=== PATIENT | male | born 1960 | race Caucasian/White ===

== ENCOUNTER 2023-02-18 09:55 | Emergency (ER) | payer OTHER, SELFPAY ==
[2023-02-18 10:01] VITALS: BP 122/74; PULSE 90; RESP 20; TEMP 36.8; O2SAT 95; BMI 38.9
--- NOTE | 2023-02-18 10:19 | CT_ITS ---
[address] [address] Patient Name: GELY JASMINE MRN: [id number] date: 1960 Sex: M Assigned Patient Location: ED.MAIN Current Patient Location: Accession/Order Number: [id number] Exam Date: 02/18/2023 10:30 Report Date: 02/18/2023 11:32 At the request of: TORITO CHAIDEZ Procedure: CT abdomen pelvis wo con EXAMINATION: CT abdomen pelvis wo con HISTORY: flank pain and urinary symptoms COMPARISON: No relevant comparison available. TECHNIQUE: Axial, Coronal, and Sagittal images were obtained without and/or with IV contrast as indicated by examination type. Dose reduction techniques were achieved by using automated exposure control and/or adjustment of mA and/or kV according to patient size and/or use of iterative reconstruction technique. FINDINGS: LUNG BASES: No visible pulmonary or pleural disease. LIVER: No enlargement, atrophy, suspicious density, or significant focal lesion. BILIARY: Cholecystectomy. PANCREAS: No lesion, fluid collection, or abnormal duct dilatation. SPLEEN: No enlargement or focal lesion. ADRENALS: No mass or enlargement. KIDNEYS: Small bilateral renal cysts. No mass, obstruction, or calcification. BOWEL/MESENTERY: No visible mass, obstruction, or bowel wall thickening. Normal appendix. AORTA/VASCULAR: No aneurysm or dissection. RETROPERITONEUM: No mass or adenopathy. LYMPH NODES: No adenopathy. URINARY BLADDER: Irregular wall thickening of the urinary bladder. No stones. PELVIC ORGANS: No visible mass. Pelvic organs appropriate for patient age. ABDOMINAL WALL: Absent versus complete fatty replacement of the right rectus abdominis muscle. No mass or hernia. BONES: Multilevel degenerative disc disease and degenerative facet arthropathy of the lumbar spine. No bony lesion or fracture. OTHER: Negative. IMPRESSION: 1.The urinary bladder is only minimally distended, but there appears to be abnormal circumferential wall thickening. Cystitis? 2.No urinary tract calculi or obstructive uropathy. Electronically authenticated by: DAVID JURADO Date: 02/18/2023 11:32
[2023-02-18 10:28] LABS: Bilirubin Urine NEGATIVE (NEGATIVE); Blood Urine MODERATE (NEGATIVE); Clarity Urine CLEAR (CLEAR); Color Urine LT. YELLOW (YELLOW); Glucose Urine UA NEGATIVE (NEGATIVE); Ketones Urine NEGATIVE (NEGATIVE); Leukocyte Esterase Urine LARGE (NEGATIVE); Nitrite Urine POSITIVE (NEGATIVE); Protein Urine 30 mg/dL (NEG/TRACE)
[2023-02-18 10:31] LABS: Urine Microscopic Indicated YES
[2023-02-18] MEDS: 0.9 % SODIUM CHLORIDE 1,000 ML 999 ML IV (10:35)
[2023-02-18] MEDS: KETOROLAC TROMETHAMINE 30 MG/ML VIAL 15 MG IVP (10:37)
[2023-02-18 10:40] LABS: Basophils Percent Auto 0.2 % (0.2-2.0); Hematocrit 41.3 % (42.0-54.0); Immature Granulocytes Abs Auto 0.17 10^3/uL (0.00-0.03); Immature Granulocytes Pct Auto 0.8 % (0.0-0.5); Mean Corpuscular HGB Conc 33.9 g/dL (29.9-35.2); Mean Corpuscular Hemoglobin 28.1 pg (25.9-34.0); Mean Corpuscular Volume 82.8 fL (80.0-94.0); Mean Platelet Volume 9.8 fL (9.5-13.5); Monocytes Absolute Auto 1.2 10^3/uL (0.3-0.8); Neutrophils Absolute Auto 17.8 10^3/uL (1.4-6.5); Platelet Count 255 10^3/uL (150-450); Red Blood Count 4.99 10^6/uL (4.70-6.10); Red Cell Distribution Width 13.5 % (11.0-15.0); White Blood Count 20.2 10^3/uL (4.0-11.0)
--- NOTE | 2023-02-18 10:42 | ED.GENADUL1 ---
HPI - General Adult General Chief complaint: Back Pain/Injury Stated complaint: BACK PAIN Time Seen by Provider: 02/18/23 10:19 Source: patient Mode of arrival: walk-in Limitations: no limitations History of Present Illness HPI narrative: developed right flank pain 2 days ago. Also has urinary symptoms. In 2005 he had removal of about 1/3 of the right kidney due to cancer. No need for chemo or radiation. He then had more of the kidney shaved off in 2011. He has been cancer free since. He has prior history of UTI, kidney stones and kidney infections . No fever or chills. No vomiting Related Data Home Medications Medication Instructions Recorded Confirmed amlodipine 5 mg tablet 5 mg PO DAILY 02/18/23 02/18/23 aspirin 81 mg tablet,delayed 81 mg PO DAILY 02/18/23 02/18/23 release (Adult Low Dose Aspirin) atorvastatin 20 mg tablet 20 mg PO DAILY 02/18/23 02/18/23 cyclobenzaprine 10 mg tablet 10 mg PO BEDTIME PRN muscle spasm 02/18/23 02/18/23 lisinopril 20 1 tab PO DAILY 02/18/23 02/18/23 mg-hydrochlorothiazide 25 mg tablet metformin 500 mg tablet 500 mg PO BID 02/18/23 02/18/23 ropinirole 1 mg tablet 2 mg PO BEDTIME 02/18/23 02/18/23 semaglutide 2 mg/dose (8 mg/3 mL) 2 mg subcut .once a week 02/18/23 02/18/23 subcutaneous pen injector (Ozempic) tamsulosin 0.4 mg capsule 0.4 mg PO DAILY 02/18/23 02/18/23 tramadol 50 mg tablet 100 mg PO BID PRN pain 02/18/23 02/18/23 Previous Rx's Medication Instructions Recorded ciprofloxacin HCl 500 mg tablet 500 mg PO BID #14 tabs 02/18/23 (Cipro) Allergies Allergy/AdvReac Type Severity Reaction Status Date / Time No Known Drug Allergies Allergy Verified 02/18/23 10:00 [facility] Social History Smoking status: Never smoker Exam Narrative Exam Narrative: Nurses notes and vital signs reviewed and patient is not hypoxic. afebrile General: Well-appearing and in no apparent distress. Skin: Warm, dry, no pallor noted. No rash. Head: Normocephalic, atraumatic. Eye: Pupils are equal, round and EOMI. No scleral icterus. Cardiovascular: Regular Rate and Rhythm without murmur, gallop or rub. Respiratory: No accessory muscle use or respiratory distress. Lungs are clear to auscultation, no wheezing, rales or rhonchi Back: No midline thoracic or lumbar vertebral tenderness. Right CVA tenderness Musculoskeletal: normal ROM, no calf or popliteal tenderness, no lower extremity edema/swelling GI: Abdomen is soft, non-distended. Normal bowel sounds. No masses appreciated. No tenderness to palpation. No rebound, guarding, or rigidity noted. Neurological: A&O x4. No cranial nerve dysfunction observed. No truncal ataxia. Moves all extremities. Sensation intact. Psychiatric: Cooperative and interactive. Normal mood and affect. Constitutional Vital Signs - 24 hr 02/18/23 10:01 Temperature 98.3 F Pulse Rate [Monitor] 90 Respiratory Rate 20 Blood Pressure [Right Arm] 122/74 H Pulse Oximetry 95 Course Vital Signs Vital signs: Vital Signs Temperature 98.3 F 02/18/23 10:01 Pulse Rate 90 02/18/23 10:01 Respiratory Rate 20 02/18/23 10:01 Blood Pressure 122/74 H 02/18/23 10:01 Pulse Oximetry 95 02/18/23 10:01 Temperature 98.3 F 02/18/23 10:01 Pulse Rate 90 02/18/23 10:01 Respiratory Rate 20 02/18/23 10:01 Blood Pressure 122/74 H 02/18/23 10:01 Pulse Oximetry 95 02/18/23 10:01 Medical Decision Making MDM Narrative Medical decision making narrative: ct and UA consistent with UTI/cystitis. Labs reviewed. Patient informed of results and discharged home with prescription for Cipro and pyridium. PCP follow up recommended. ED return if he worsens. Lab Data Lab results reviewed: Yes I reviewed the patient's lab results Labs: Lab Results 02/18/23 02/18/23 02/18/23 Range/Units 10:15 10:30 10:31 WBC 20.2 H (4.0-11.0) 10^3/uL RBC 4.99 (4.70-6.10) 10^6/uL Hgb 14.0 (14.0-18.0) g/dL Hct 41.3 L (42.0-54.0) % MCV 82.8 (80.0-94.0) fL MCH 28.1 (25.9-34.0) pg MCHC 33.9 (29.9-35.2) g/dL RDW 13.5 (11.0-15.0) % Plt Count 255 (150-450) 10^3/uL MPV 9.8 (9.5-13.5) fL Neut % (Auto) 88.0 H (43.0-75.0) % Lymph % (Auto) 5.0 L (20.5-60.0) % Dent % (Auto) 6.0 (1.7-12.0) % Eos % (Auto) 0.0 L (0.9-7.0) % Baso % (Auto) 0.2 (0.2-2.0) % Neut # (Auto) 17.8 H (1.4-6.5) 10^3/uL Lymph # (Auto) 1.0 L (1.2-3.8) 10^3/uL Dent # (Auto) 1.2 H (0.3-0.8) 10^3/uL Eos # (Auto) 0.0 (0.0-0.7) 10^3/uL Baso # (Auto) 0.0 (0.0-0.1) 10^3/uL Abs Immat Gran (auto) 0.17 H (0.00-0.03) 10^3/uL Imm/Tot Granulo (auto) 0.8 H (0.0-0.5) % Sodium 133 L (136-145) mmol/L Potassium 3.7 (3.5-5.1) mmol/L Chloride 96 L (98-107) mmol/L Carbon Dioxide 28.3 (21.0-32.0) mmol/L Anion Gap 12.4 BUN 16.0 (7.0-18.0) mg/dL Creatinine 1.15 (0.70-1.30) mg/dL Est GFR ( Amer) >60 (>=60) Est GFR (Non-Af Amer) >60 (>=60) BUN/Creatinine Ratio 13.9 Glucose 129 H (74-106) mg/dL Calcium 8.6 (8.5-10.1) mg/dL Total Bilirubin 1.4 H (0.2-1.0) mg/dL AST 10 L (15-37) U/L ALT 21 (16-63) U/L Alkaline Phosphatase 84 (46-116) U/L Total Protein 7.6 (6.4-8.2) g/dL Albumin 3.4 (3.4-5.0) g/dL Globulin 4.2 g/dL Albumin/Globulin Ratio 0.8 Urine Color Lt. yellow (YELLOW) Urine Clarity Clear (CLEAR) Urine pH 6.0 (5.0-9.0) Ur Specific [place] 1.010 (1.005-1.025) Urine Protein 30 A (NEG/TRACE) mg/dL Urine Glucose (UA) Negative (NEGATIVE) mg/dL Urine Ketones Negative (NEGATIVE) mg/dL Urine Occult Blood Moderate A (NEGATIVE) Urine Nitrite Positive A (NEGATIVE) Urine Bilirubin Negative (NEGATIVE) Urine Urobilinogen 1.0 (0.2-1.0) EU/dL Ur Leukocyte Esterase Large A (NEGATIVE) Urine RBC 5-10 A (0-2) #/HPF Urine WBC 75-100 A (NONE SEEN) #/HPF Ur Squamous Epith Cells Few A (NONE/RARE) #/LPF Urine Crystals None seen (None Seen) #/HPF Urine Bacteria Moderate A (NONE SEEN) #/HPF Urine Casts None seen (NONE SEEN) #/LPF Urine Mucus None seen (NONE SEEN) Ur Culture Indicated? Yes Imaging Data ct abd/pelvis: Radiologist's impression: Patient Name: GELY JASMINE MRN: [id number] date: 1960 Sex: M Assigned Patient Location: ED.MAIN Current Patient Location: Accession/Order Number: [id number] Exam Date: 02/18/2023 10:30 Report Date: 02/18/2023 11:32 At the request of: TORITO CHAIDEZ Procedure: CT abdomen pelvis wo con EXAMINATION: CT abdomen pelvis wo con HISTORY: flank pain and urinary symptoms COMPARISON: No relevant comparison available. TECHNIQUE: Axial, Coronal, and Sagittal images were obtained without and/or with IV contrast as indicated by examination type. Dose reduction techniques were achieved by using automated exposure control and/or adjustment of mA and/or kV according to patient size and/or use of iterative reconstruction technique. FINDINGS: LUNG BASES: No visible pulmonary or pleural disease. LIVER: No enlargement, atrophy, suspicious density, or significant focal lesion. BILIARY: Cholecystectomy. PANCREAS: No lesion, fluid collection, or abnormal duct dilatation. SPLEEN: No enlargement or focal lesion. ADRENALS: No mass or enlargement. KIDNEYS: Small bilateral renal cysts. No mass, obstruction, or calcification. BOWEL/MESENTERY: No visible mass, obstruction, or bowel wall thickening. Normal appendix. AORTA/VASCULAR: No aneurysm or dissection. RETROPERITONEUM: No mass or adenopathy. LYMPH NODES: No adenopathy. URINARY BLADDER: Irregular wall thickening of the urinary bladder. No stones. PELVIC ORGANS: No visible mass. Pelvic organs appropriate for patient age. ABDOMINAL WALL: Absent versus complete fatty replacement of the right rectus abdominis muscle. No mass or hernia. BONES: Multilevel degenerative disc disease and degenerative facet arthropathy of the lumbar spine. No bony lesion or fracture. OTHER: Negative. IMPRESSION: 1.The urinary bladder is only minimally distended, but there appears to be abnormal circumferential wall thickening. Cystitis? 2.No urinary tract calculi or obstructive uropathy. Electronically authenticated by: DAVID JURADO Date: 02/18/2023 11:32 Discharge Plan Discharge Chief Complaint: Back Pain/Injury Clinical Impression: Acute flank pain, Cystitis Patient Disposition: Home, Self-Care Time of Disposition Decision: 12:16 Prescriptions / Home Meds: New ciprofloxacin HCl [Cipro] 500 mg tablet 500 mg PO BID Qty: 14 0RF No Action amlodipine 5 mg tablet 5 mg PO DAILY atorvastatin 20 mg tablet 20 mg PO DAILY cyclobenzaprine 10 mg tablet 10 mg PO BEDTIME PRN (Reason: muscle spasm) lisinopril-hydrochlorothiazide 20-25 mg tablet 1 tab PO DAILY metformin 500 mg tablet 500 mg PO BID ropinirole 1 mg tablet 2 mg PO BEDTIME tamsulosin 0.4 mg capsule 0.4 mg PO DAILY Ozempic 2 mg/dose (8 mg/3 mL) pen injector 2 mg SUBCUT .once a week tramadol 50 mg tablet 100 mg PO BID PRN (Reason: pain) aspirin [Adult Low Dose Aspirin] 81 mg tablet,delayed release (DR/EC) 81 mg PO DAILY Instructions: Flank Pain (ED), Urinary Tract Infection in Older Adults (ED) Stand Alone Forms: Portal Instructions Referrals: JUANCARLOS PALMA [Primary Care Provider] - 1 week
[2023-02-18 10:43] LABS: WBC Urine 75-100 #/HPF (NONE SEEN)
[2023-02-18 10:44] LABS: Bacteria Urine MODERATE #/HPF (NONE SEEN); Cast Seen? NONE SEEN #/LPF (NONE SEEN); Crystals Seen? None Seen #/HPF (None Seen); Mucus Urine NONE SEEN (NONE SEEN); Squamous Epithelial Cell Urine FEW #/LPF (NONE/RARE); Urine Culture Indicated YES
[2023-02-18 11:06] LABS: Alanine Aminotransferase 21 U/L (16-63); Albumin Globulin Ratio 0.8; Albumin Level 3.4 g/dL (3.4-5.0); Alkaline Phosphatase 84 U/L (46-116); Anion Gap 12.4; Aspartate Amino Transferase 10 U/L (15-37); BUN Creatinine Ratio 13.9; Bilirubin Total 1.4 mg/dL (0.2-1.0); Calcium 8.6 mg/dL (8.5-10.1); Carbon Dioxide 28.3 mmol/L (21.0-32.0); Chloride 96 mmol/L (98-107); Estimated GFR (African America >60 (>=60); Estimated GFR (Non-African Ame >60 (>=60); Globulin 4.2 g/dL; Glucose 129 mg/dL (74-106); Potassium 3.7 mmol/L (3.5-5.1); Sodium 133 mmol/L (136-145); Total Protein 7.6 g/dL (6.4-8.2)
[2023-02-18 12:29] VITALS: BP 108/67; PULSE 85; RESP 18; TEMP 36.8; O2SAT 96
== END 2023-02-18 12:50 | disposition home or self-care (01) ==
PROVIDERS: Emergency Provider Emergency Medicine; PCP Internal Medicine
DX: N30.90 Cystitis, unspecified without hematuria (principal); R10.9 Unspecified abdominal pain; Z87.442 Personal history of urinary calculi; Z87.440 Personal history of urinary (tract) infections; Z79.82 Long term (current) use of aspirin; Z79.84 Long term (current) use of oral hypoglycemic drugs; Z79.899 Other long term (current) drug therapy
CPT/HCPCS: 36415; 74176; 80053; 81003; 81015; 85025; 87086; 87150; 87186; 96374; 99284